=== PATIENT | female | born 2005 | race Hispanic/Latino ===

== ENCOUNTER 2023-07-22 13:05 | Outpatient (CLI) | payer BC ==
[2023-07-22] MEDS ORDERED: Magnevist 469MG/ML 20 ML VIAL ONE (14:53)
== END 2023-07-22 13:06 | disposition home or self-care (01) ==
LOC: CSHMRI 13:05
PROVIDERS: ATTEND Psychiatry & Neurology Neurology
DX: R51.9 Headache, unspecified (principal)
CPT/HCPCS: 70553; A9579